=== PATIENT | male | born 1955 | race Asian ===

== ENCOUNTER 2021-02-18 17:42 | Emergency (ER) | payer OTHER ==
[2021-02-18 18:28] VITALS: BMI 36.9
[2021-02-18] MEDS ORDERED: CASIRIVIMAB/IMDEVIMAB 10 ML in SODIUM CHLORIDE 100 ML IVPB ONE (19:30)
[2021-02-18 20:49] LABS: HEMATOCRIT 42.1 % (35.4-49); HEMOGLOBIN 14.8 GM/dL (11.7-16.9); MCH 29.9 pg (25.7-33.7); MCHC 35.1 g/dl (32.0-35.9); MEAN PLT VOLUME 7.8 fl (7.5-11.1); PLATELET COUNT 126 10^3/uL (134-434); RBC 4.95 M/mm3 (4.00-5.60); RDW 13.5 % (11.9-15.9); WHITE BLOOD COUNT 4.1 K/mm3 (4.0-10.0)
[2021-02-18 21:04] LABS: CHLORIDE 104 mmol/L (98-107); SODIUM 140 mmol/L (136-145)
[2021-02-18 21:06] LABS: ALBUMIN 3.3 g/dl (3.4-5.0); ANION GAP 9 MMOL/L (8-16); BLOOD UREA NITROGEN 15.7 mg/dL (7-18); CO2 27 mmol/L (21-32)
[2021-02-18 21:08] LABS: GLUCOSE,RANDOM 88 mg/dL (74-106)
[2021-02-18 21:09] LABS: CREATININE 1.2 mg/dL (0.55-1.3); SGOT/AST 36 U/L (15-37); SGPT/ALT 37 U/L (13-61)
[2021-02-18 21:11] LABS: BILIRUBIN,TOTAL 1.1 mg/dL (0.2-1); TOT PROT 7.3 g/dl (6.4-8.2)
[2021-02-18 21:12] LABS: ALK PHOS 76 U/L (45-117)
[2021-02-18 22:46] VITALS: BP 149/85; PULSE 65; TEMP 98.2
== END 2021-02-18 23:15 | disposition home or self-care (01) ==
LOC: JCOVINFU 17:42
DX: U07.1 COVID-19 (principal)
CPT/HCPCS: 36415; 71045-TC-FY; 80053; 82550; 84484; 85027; 93005; 93010; 96365; 99284-25; Q0240